=== PATIENT | female | born 1955 | race Caucasian/White ===

== ENCOUNTER 2017-04-19 06:04 | Day surgery (SDC) | payer OTHER ==
[2017-04-18 10:48] VITALS: BMI 23.8
[~2017-04-19] VITALS: Ht 175.3 cm; Wt 68.5 kg
[2017-04-19] VITALS (12 sets, daily range): BP systolic 106–146; BP diastolic 56–71; PULSE 78–85; RESP 13–22; Ht 175.3 cm; Wt 68.5 kg
[2017-04-19] MEDS ORDERED: PRAV20TA2 PO (07:07)
[2017-04-19] MEDS ORDERED: METF1000 PO (07:07)
[2017-04-19] MEDS ORDERED: AMLO-218 PO (07:07)
[2017-04-19] MEDS ORDERED: GABA300C16 PO (07:07)
--- NOTE | 2017-04-19 07:12 | RADRPT ---
PROCEDURE: XR Chest. CLINICAL INDICATION: Preoperative evaluation prior to general anesthesia TECHNIQUE: Portable single view of the chest COMPARISON: None. FINDINGS: Minimal bibasilar atelectasis. The heart size appears within normal limits. Mediastinal contours are unremarkable. No definite acute infiltrate, pleural effusion, or overt congestive heart failure. Mi nimal degenerative change of the spine. IMPRESSION: Slight bibasilar crowding/atelectasis. No definite acute disease. RPTAT: [facility] Physician Linda Date Time Electronically viewed and signed by Mady Ibanez Physician on 04/19/2017 07:12 LE/
--- NOTE | 2017-04-19 07:45 | HPN ---
Date/Time of Note Date/Time of Note DATE: 04/19/17 TIME: 07:45 Interval H&P Admission Note Pt. seen H&P reviewed: No system changes AMANDA CAMPA DPM Apr 19, 2017 07:45
[2017-04-19] MEDS ORDERED: BUPIVACAINE 0.5% (SDV) 30 ML INJ ONE (08:02)
[2017-04-19] MEDS ORDERED: POVIDONE IODINE 10% 28.4 GM OINT ONE (08:02)
[2017-04-19] MEDS ORDERED: LIDOCAINE 1% (MPF) 10 ML INJ ONE (08:02)
[2017-04-19] MEDS ORDERED: FENTAnyl 50 MCG/ML VIAL ONE (08:07)
[2017-04-19] MEDS ORDERED: SUCCINYLCHOLINE CHLORIDE 100 MG/5 ML SYG IV ONE (08:24)
[2017-04-19] MEDS ORDERED: PROPOFOL 20 ML ONE (08:24)
[2017-04-19] MEDS ORDERED: SUGAMMADEX SODIUM 200 MG/2 ML VIAL IV ONE (08:24)
[2017-04-19] MEDS ORDERED: CEFAZOLIN 1 GM INJ ONE (08:24)
[2017-04-19] MEDS ORDERED: LIDOCAINE 2% (SDV) 5 ML INJ ONE (08:24)
[2017-04-19] MEDS ORDERED: ROCURONIUM 50 MG INJ ONE (08:24)
[2017-04-19] MEDS ORDERED: LABETALOL HCL 20MG INJ ONE (08:24)
[2017-04-19] MEDS ORDERED: METOCLOPRAMIDE 10 MG INJ IV PRN (08:30)
[2017-04-19] MEDS ORDERED: LABETALOL HCL 20MG INJ IV PRN (08:30)
[2017-04-19] MEDS ORDERED: DIPHENHYDRAMINE 50 MG INJ IV PRN (08:30)
[2017-04-19] MEDS ORDERED: FENTAnyl 50 MCG/ML VIAL IV PRN ×2 (08:30)
[2017-04-19] MEDS ORDERED: MEPERIDINE 25 MG INJ IV PRN (08:30)
[2017-04-19] MEDS ORDERED: HYDROmorphONE (0.2 MG/ML) 10ML SYG IV PRN (08:30)
[2017-04-19] MEDS ORDERED: ONDANSETRON 4 MG INJ IV PRN (08:30)
[2017-04-19] MEDS ORDERED: BUPIVACAINE 0.5% (MPF) 30 ML INJ EPI ONE (08:32)
--- NOTE | 2017-04-19 09:22 | SIPON ---
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
--- NOTE | 2017-04-19 17:01 | OPR ---
DATE OF OPERATION: 04/19/2017 PREOPERATIVE DIAGNOSES: 1. Deformed 3rd metatarsophalangeal joint left foot. 2. Accessory 1 interphalangeal joint hallux left foot. FINAL DIAGNOSES: 1. Deformed 3rd metatarsophalangeal joint left foot. 2. Accessory 1 interphalangeal joint hallux left foot. SURGERY: 1. Partial ostectomy, 3rd metatarsophalangeal joint, left foot. 2. Excision, accessory 1 interphalangeal joint hallux left foot. SURGEON: Daniel Zavaleta DPM OPERATIVE PROCEDURE: The patient was brought to the surgical suite, placed in the supine position. Patient was under general anesthesia. The patient had pneumatic cuff at mid thigh. Had sterile prep and drape and findings consistent with the pre and postop diagnosis. The first incision was a dorsal longitudinal incision over the 3rd metatarsophalangeal joint. Using sharp and blunt dissection the head of the 3rd metatarsal was freed of its attachment and resected. The distal fourth of the bone at a slight angle from dorsal to plantar. The area was cleansed. The preop condition having been relieved. The area was then subcutaneously coaptated using 3-0 Vicryl and the skin was coaptated using 5-0 nylon. Next, incision was a plantar incision on the hallux using sharp and blunt dissection. The incision was carried deep to the exostosis or accessary bone on the plantar surface of the IP joint was identified and remodeled and the area was cleansed. The preoperative condition having been relieved. The area was subcutaneously coaptated using 3-0 Vicryl and the skin was coaptated using 5-0 Nylon. All incisions were injected with 0.5 percent Marcaine to prolong anesthesia and a dressing of half-inch Steri-Strips, Betadine ointment, 4x4s impregnated with Betadine solution and Arjun with an outer layer of Coban made into a semicompressive dressing. The patient tolerated the surgery well and was returned to recovery room in satisfactory condition. Dictated By: Daniel Zavaleta DPM /[email or web address] /Document#: [id number] NATHAN
--- NOTE | 2017-04-22 10:15 | PREOPHP ---
DATE OF ADMISSION: 04/19/2017 HISTORY OF PRESENT ILLNESS: The patient is being admitted on 04/19/2017, for elective foot surgery. Palliative treatment has been unsuccessful. Patient has been explained surgery, complications and alternatives and elected to have elective foot surgery. Patient having pain, plantar 3rd metatarsophalangeal joint and plantar IP joint hallux, both of the left foot. PAST MEDICAL HISTORY: She is not allergic to any medicine, but she is diabetic on high blood pressure medicine and pain medicine for her back and cholesterol medicine. She denies history of heart, lung, liver, kidney, thyroid problems. Her diabetic medicine is oral. SOCIAL HISTORY: She smokes a pack a day, negative for alcohol. See any pertinent history. PHYSICAL EXAMINATION: See upper extremity physical exam by [facility]. LOWER EXTREMITIES: Shows a DP and PT, equal and regular. NEUROLOGIC: Negative for pathology. DERMATOLOGIC: Shows lesions, plantar 3rd metatarsophalangeal joint and lesion, plantar IP joint hallux, both are on the left foot. MUSCULOSKELETAL: X-ray findings show a deformed 3rd MP joint and an exostosis on the plantar of the foot for the hallux. FINAL DIAGNOSES: 1. Deformed 3rd metatarsophalangeal joint, left accessory bone. 2. Hallux interphalangeal joint, left. Dictated By: Daniel Zavaleta DPM /[email or web address] /Document#: [id number] NATHAN
== END 2017-04-19 12:58 | disposition home or self-care (01) ==
LOC: SDS 06:04
PROVIDERS: ATTEND Podiatrist
DX: M21.962 Unspecified acquired deformity of left lower leg (principal); M19.072 Primary osteoarthritis, left ankle and foot; M89.9 Disorder of bone, unspecified; E11.9 Type 2 diabetes mellitus without complications; Z87.891 Personal history of nicotine dependence
CPT/HCPCS: 28124; 28288; 71010; 82962; 88304; 88311; J0690; J1170; J3010; L3260